=== PATIENT | female | born 1990 | race Caucasian/White ===

== ENCOUNTER 2021-09-30 00:42 | Emergency (ER) | payer BC, SELFPAY ==
[2021-09-30 00:42] VITALS: BP 126/75; PULSE 87; RESP 20; TEMP 36.2; O2SAT 98; BMI 29.3
[2021-09-30 00:46] VITALS: BP 118/78; PULSE 87; RESP 16; O2SAT 97
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
--- NOTE | 2021-09-30 01:31 | ED.NURSE ---
Urine sample collected and sent to lab.
[2021-09-30 01:36] LABS: Appearance Urine Cloudy (Clear); Bilirubin Urine Negative (Negative); Blood Urine Negative (Negative); Color Urine Yellow (Yellow); Glucose Urine Negative (Negative); Ketones Urine Negative (Negative); Leukocyte Esterase Urine Trace (Negative); Nitrite Urine Negative (Negative); Protein Urine Negative (Negative); Specific Gravity Urine <= 1.005 (1.000-1.030); Urobilinogen Urine 0.2 (0.2-1.0)
[2021-09-30 01:40] LABS: Ur HCG Qualitative* Negative (Negative)
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
[2021-09-30 01:58] LABS: RBC Urine 0-2 (0-2); Squamous Epithelial Cell Urine Few (None-Few)
--- NOTE | 2021-09-30 01:59 | ED.NURSE ---
Patient to CT.
[2021-09-30 03:24] VITALS: BP 118/72; PULSE 71; RESP 18; O2SAT 97
--- NOTE | 2021-09-30 03:46 | ED.NURSE ---
Discharge instructions and medical clearance note was reviewed with patient and signed, when [facility] ([facility] refused to accept the patient until they were able to review the patient's ED visit summary, labs and physician notes per a conversation between [facility] and the [employer]. [facility] is contacted by this RN and it is explained that the patient is discharged from the ER and leaving into police custody, not a transfer from the hospital to their facility. Acceptance into [facility] is between the police department and [facility], not the hospital. This request is highly irregular and not standard practice. This request is reviewed with the physician, SARAH, Morphologist, and the patient. The patient is returned to the ER exam room per the request of [facility] to wait with the SARAH while in custody. Requested information is faxed to [facility].
--- NOTE | 2021-09-30 04:12 | ED.NURSE ---
Patient left department with [employer].
== END 2021-09-30 04:13 ==
PROVIDERS: Emergency Provider Family Medicine
DX: S16.1XXA Strain of muscle, fascia and tendon at neck level, initial encounter (principal); V43.52XA Car driver injured in collision with other type car in traffic accident, initial encounter
CPT/HCPCS: 72125; 81003; 81015; 81025; 99284; 99285

== ENCOUNTER 2022-05-07 08:53 | Emergency (ER) | payer BC, SELFPAY ==
[2022-05-07] VITALS (32 sets, daily range): BP systolic 118–142; BP diastolic 85–105; PULSE 73–128; RESP 16–20; TEMP 36.2; O2SAT 82–99; BMI 29.3
--- NOTE | 2022-05-07 10:20 | ED_ITS ---
HPI - General Adult General Chief complaint: Alcohol/Intoxication Stated complaint: Alcohol related/fever/vomiting Time Seen by Provider: 05/07/22 10:14 History of Present Illness HPI narrative: This 32-year-old female comes in stating that she is an alcoholic and is seeking help. She comes in with her boyfriend and states that she recently confided in him that she does have an alcohol problem. Her last drink was at 7:00 a.m. this morning but she states that she threw up soon after this. He does feel little bit shaky and does report some history of withdrawal symptoms. She has not had any seizures. She denies at using any other street drugs. Related Data Home Medications Medication Instructions Recorded Confirmed No Known Home Medications 09/30/21 09/30/21 Allergies Allergy/AdvReac Type Severity Reaction Status Date / Time acetaminophen AdvReac Mild Nausea Verified 09/30/21 01:10 Review of Systems Status of ROS: Reports: 10 or more systems reviewed and unremarkable except as noted in History and below Narrative: Constitutional: No fevers, no weight gain or loss. Eyes: No discharge. No vision changes. HENT: No congestion, no sore throat, no ear pain. Cardiovascular: No chest pain, no palpitations. Respiratory: No shortness of breath, no wheezes, no cough. Gastrointestinal: No abdominal pain, no diarrhea. Recent vomiting episode. Genitourinary: No dysuria, no hematuria. Musculoskeletal: Normal range of motion. Skin: No rashes, no pruritis. Neurological: No dizziness, weakness, sensory change, speech change. Mild tremor related to alcohol use. Endo/Heme/Allergies: No bruising or bleeding. No polydipsia. Pysch: Alcohol addiction. All other systems reviewed and are negative. [facility] Medical History Alcohol withdrawal Social History Smoking Status: Current every day smoker What tobacco products do you use: cigarettes How often do you have a drink containing alcohol: 4 or more times a week How many standard drinks containing alcohol do you have on a typical day: 5 or 6 How often do you have six or more drinks on one occasion: Daily or almost daily AUDIT-C Alcohol total score: 10 Non-prescribed substance use: marijuana (any form) service: No Exam Narrative: Exam Narrative: Constitutional: Well-developed, well-nourished, no acute distress. HEENT: Normocephalic, atraumatic. Neck: Normal range of motion. Nontender. Supple. Heart: Regular. No murmurs. Tachycardia, rate 103 beats per minute. Intact distal pulses. Lungs: Clear to auscultation. No chest discomfort. No wheezes, rhonchi, or rales. Abdomen: Normal bowel sounds. Nontender. No rebound tenderness. Genitalia: Deferred. Back: No midline tenderness. Normal range of motion. Extremities: Normal range of motion. No injury. Skin: Intact. No rash. Warm. No erythema or pallor. Neurologic: No altered sensation. No weakness. Alert and oriented. Psychiatric: No suicidality. No anxiety or depression. No insomnia. Nursing notes and vitals signs are reviewed. Const: Vital Signs, click to edit/add: Vital Signs - 24 hr 05/07/22 09:12 05/07/22 10:54 05/07/22 13:04 Temperature 97.1 F L Pulse Rate [Pulse Oximeter] 103 H 78 92 Respiratory Rate 20 18 Blood Pressure [Le ft Upper Arm] 142/105 H 123/89 Pulse Oximetry 98 97 93 Oxygen Delivery Me thod Room Air 05/07/22 14:13 Temperature Pulse Rate [Pulse Oximeter] 91 Respiratory Rate 16 Blood Pressure [Le ft Upper Arm] 118/85 Pulse Oximetry 95 Oxygen Delivery Me thod Course Vital Signs Vital signs: Initial Vital Signs Temperature 97.1 F L 05/07/22 09:12 Temperature Source Temporal Artery Scan 05/07/22 09:12 Pulse Rate 103 H 05/07/22 09:12 Respiratory Rate 05/07/22 09:12 Blood Pressure 142/105 H 05/07/22 09:12 Blood Pressure Mean 117 05/07/22 09:12 Pulse Oximetry 98 05/07/22 09:12 Oxygen Delivery Method 05/07/22 09:12 Vital Signs Temperature 97.1 F L 05/07/22 09:12 Pulse Rate 103 H 05/07/22 09:12 Respiratory Rate 20 05/07/22 09:12 Blood Pressure 142/105 H 05/07/22 09:12 Pulse Oximetry 98 05/07/22 09:12 Oxygen Delivery Method 05/07/22 09:12 Temperature 97.1 F L 05/07/22 09:12 Pulse Rate 91 05/07/22 14:13 Respiratory Rate 16 05/07/22 14:13 Blood Pressure 118/85 05/07/22 14:13 Pulse Oximetry 95 05/07/22 14:13 Oxygen Delivery Method 05/07/22 09:12 Medical Decision Making MDM Narrative Medical decision making narrative: This patient comes in with alcohol intoxication and dependence. She stated initially that she is interested in detox in getting treatment. An IV was established and she received a L of normal saline and 1 mg of Ativan intravenously. She did have some mild tremor when holding her hand. This helped her feel better. Arrangements are made over several hours time for [facility] to be [facility]. The patient now is changing her mind is saying that she cannot afford to lose her job and was not aware that detox was an inpatient strategy. I stated that she would likely experience some withdrawal symptoms that may perpetuate drinking alcohol and nevertheless recommended detox for her. She again declined this. She is okay to be discharged home then and has someone who can escort her. Lab Data Labs: Lab Results 05/07/22 05/07/22 05/07/22 Range/Units 10:40 10:40 12:16 WBC 5.57 (4.50-11.00) K/uL RBC 5.19 (4.00-5.20) m/uL Hgb 15.6 (12.0-16.0) gm/dL Hct 44.5 (33.0-51.0) % MCV 86 (80-100) fL MCH 30 (26-34) pg MCHC 35 (32-36) gm/dL RDW Coeff of [place] 16.0 H (11.5-15.5) % Plt Count 232 (140-440) K/uL Neut % (Auto) 61.0 (42.0-72.0) % Lymph % (Auto) 30.0 (20-44) % [place] % (Auto) 8.3 (0.0-11.0) % Eos % (Auto) 0.2 (0.0-7.0) % Baso % (Auto) 0.5 (0.0-3.0) % Neut # (Auto) 3.40 (1.7-7.0) K/uL Lymph # (Auto) 1.67 (0.90-2.90) K/uL [place] # (Auto) 0.50 (0.00-0.90) K/UL Eos # (Auto) 0.01 (0.00-0.50) K/uL Baso # (Auto) 0.03 (0.00-0.30) K/uL Sodium 141 (135-149) mmol/L Potassium 3.5 L (3.6-5.1) mmol/L Chloride 105 (96-114) mmol/L Carbon Dioxide 26 (20-32) mmol/L BUN 11 (5-24) mg/dL Creatinine 0.8 (0.5-1.5) mg/dL Estimated Creat Clear 80.59 Estimated GFR 101 ml/min Glucose 142 H (60-115) mg/dL Calcium 8.2 L (8.4-10.6) mg/dL HCG, Qual Negative (Negative) Urine Color Yellow (Yellow) Urine Appearance Cloudy A (Clear) Urine pH 6.0 (5.0-8.5) Ur Specific [place] 1.015 (1.000-1.030) Urine Protein Negative (Negative) Urine Glucose (UA) Negative (Negative) Urine Ketones Negative (Negative) Urine Blood Trace-intact A (Negative) Urine Nitrite Positive A (Negative) Urine Bilirubin Negative (Negative) Urine Urobilinogen 0.2 (0.2-1.0) Ur Leukocyte Esterase Trace A (Negative) Urine RBC 0-2 (0-2) Urine WBC 5-10 A (0-5) Ur Squamous Epith Cells Moderate A (None-Few) Urine Bacteria Many A (None) Urine Opiates Screen (Negative) Ur Oxycodone Screen (Negative) Urine Methadone Screen (Negative) Ur Propoxyphene Screen (Negative) Ur Barbiturates Screen (Negative) U Tricyclic Antidepress (Negative) Ur Phencyclidine Scrn (Negative) Ur Amphetamines Screen (Negative) U Methamphetamines Scrn (Negative) U Benzodiazepines Scrn (Negative) Urine Cocaine Screen (Negative) U Marijuana (THC) Screen (Negative) Ur Drug Screen Comment Ethyl Alcohol 0.27 H (0.01-0.03) % SARS-CoV-2 (PCR) (Negative) 05/07/22 05/07/22 Range/Units 12:16 14:16 WBC (4.50-11.00) K/uL RBC (4.00-5.20) m/uL Hgb (12.0-16.0) gm/dL Hct (33.0-51.0) % MCV (80-100) fL MCH (26-34) pg MCHC (32-36) gm/dL RDW Coeff of [place] (11.5-15.5) % Plt Count (140-440) K/uL Neut % (Auto) (42.0-72.0) % Lymph % (Auto) (20-44) % [place] % (Auto) (0.0-11.0) % Eos % (Auto) (0.0-7.0) % Baso % (Auto) (0.0-3.0) % Neut # (Auto) (1.7-7.0) K/uL Lymph # (Auto) (0.90-2.90) K/uL [place] # (Auto) (0.00-0.90) K/UL Eos # (Auto) (0.00-0.50) K/uL Baso # (Auto) (0.00-0.30) K/uL Sodium (135-149) mmol/L Potassium (3.6-5.1) mmol/L Chloride (96-114) mmol/L Carbon Dioxide (20-32) mmol/L BUN (5-24) mg/dL Creatinine (0.5-1.5) mg/dL Estimated Creat Clear Estimated GFR ml/min Glucose (60-115) mg/dL Calcium (8.4-10.6) mg/dL HCG, Qual (Negative) Urine Color (Yellow) Urine Appearance (Clear) Urine pH (5.0-8.5) Ur Specific [place] (1.000-1.030) Urine Protein (Negative) Urine Glucose (UA) (Negative) Urine Ketones (Negative) Urine Blood (Negative) Urine Nitrite (Negative) Urine Bilirubin (Negative) Urine Urobilinogen (0.2-1.0) Ur Leukocyte Esterase (Negative) Urine RBC (0-2) Urine WBC (0-5) Ur Squamous Epith Cells (None-Few) Urine Bacteria (None) Urine Opiates Screen Negative (Negative) Ur Oxycodone Screen Negative (Negative) Urine Methadone Screen Negative (Negative) Ur Propoxyphene Screen Negative (Negative) Ur Barbiturates Screen Negative (Negative) U Tricyclic Antidepress Negative (Negative) Ur Phencyclidine Scrn Negative (Negative) Ur Amphetamines Screen Negative (Negative) U Methamphetamines Scrn Negative (Negative) U Benzodiazepines Scrn Negative (Negative) Urine Cocaine Screen Negative (Negative) U Marijuana (THC) Screen POSITIVE A* (Negative) Ur Drug Screen Comment See Note Ethyl Alcohol (0.01-0.03) % SARS-CoV-2 (PCR) Negative SARS-CoV-2 (Negative) Discharge Plan Discharge Clinical Impression: Alcoholic intoxication Patient Disposition: Home w/ Parent or Adult Condition: Stable Additional Instructions: Follow-up with primary physician. Consult detox resources to help with symptoms of withdrawal. Return if worsening. Inpatient or outpatient treatment is recommended. Prescriptions: No Action No Known Home Medications Follow Up/Referrals: Provider,Not a Local [Primary Care Provider] - Stand Alone Forms: [employer] Info Instructions
[2022-05-07 10:51] LABS: Basophils Absolute Auto 0.03 K/uL (0.00-0.30); Basophils Percent Auto 0.5 % (0.0-3.0); Eosinophils Absolute Auto 0.01 K/uL (0.00-0.50); Eosinophils Percent Auto 0.2 % (0.0-7.0); Hematocrit 44.5 % (33.0-51.0); Hemoglobin* 15.6 gm/dL (12.0-16.0); Lymphocytes Absolute Auto 1.67 K/uL (0.90-2.90); Mean Corpuscular HGB Conc 35 gm/dL (32-36); Mean Corpuscular Hemoglobin 30 pg (26-34); Mean Corpuscular Volume 86 fL (80-100); Monocytes Percent Auto 8.3 % (0.0-11.0); Platelet Count* 232 K/uL (140-440); Red Blood Count 5.19 m/uL (4.00-5.20); White Blood Count* 5.57 K/uL (4.50-11.00)
[2022-05-07] MEDS: 0.9 % SODIUM CHLORIDE 1000 ml 1,000 ML IV (10:51)
[2022-05-07] MEDS: LORazepam 2 MG/ML inj 1 MG IV (10:51)
[2022-05-07 11:02] LABS: Slide Review Reflex No
[2022-05-07 11:07] LABS: Chloride* 105 mmol/L (96-114); Sodium* 141 mmol/L (135-149)
[2022-05-07 11:08] LABS: Potassium* 3.5 mmol/L (3.6-5.1)
[2022-05-07 11:10] LABS: Carbon Dioxide* 26 mmol/L (20-32); Creatinine* 0.8 mg/dL (0.5-1.5); Est. Creatinine Clearance* 80.59; Estimated Glomerular Filt Rate 101 ml/min
[2022-05-07 11:11] LABS: Blood Urea Nitrogen* 11 mg/dL (5-24); Calcium* 8.2 mg/dL (8.4-10.6); Ethanol* 0.27 % (0.01-0.03); Glucose* 142 mg/dL (60-115)
[2022-05-07 13:44] LABS: HCG Qualitative* Negative (Negative)
[2022-05-07 13:51] LABS: Amphetamine Screen Urine Negative (Negative); Appearance Urine Cloudy (Clear); Barbiturate Screen Urine Negative (Negative); Benzodiazepines Screen Urine Negative (Negative); Bilirubin Urine Negative (Negative); Blood Urine Trace-intact (Negative); Cocaine Screen Urine Negative (Negative); Color Urine Yellow (Yellow); Glucose Urine Negative (Negative); Ketones Urine Negative (Negative); Leukocyte Esterase Urine Trace (Negative); Methadone Screen Urine Negative (Negative); Methamphetamines Screen Urine Negative (Negative); Nitrite Urine Positive (Negative); Opiate Screen Urine Negative (Negative); Oxycodone Screen Urine Negative (Negative); Phencyclidine Screen Urine Negative (Negative); Protein Urine Negative (Negative); Specific Gravity Urine 1.015 (1.000-1.030); Tricyclic Antidepressant Urine Negative (Negative); Urobilinogen Urine 0.2 (0.2-1.0)
[2022-05-07 13:54] LABS: Cannabinoid Screen Urine POSITIVE (Negative)
[2022-05-07 14:06] LABS: Bacteria Urine Many; RBC Urine 0-2 (0-2); Squamous Epithelial Cell Urine Moderate (None-Few)
[2022-05-07 14:56] LABS: SARS PCR* Negative SARS-CoV-2 (Negative)
== END 2022-05-07 16:01 | disposition home or self-care (01) ==
PROVIDERS: Emergency Provider Emergency Medicine Emergency Medical Services
DX: F10.229 Alcohol dependence with intoxication, unspecified (principal)
CPT/HCPCS: 36415; 80048; 80306; 81001; 82077; 84703; 85025; 87086; 87186; 87635; 96374; 99283; 99284; J2060; J7030

== ENCOUNTER 2023-03-25 09:42 | Outpatient (CLI) | payer BC, SELFPAY | END 2023-03-25 09:43 | disposition home or self-care (01) | LOC: AMB 03-29 07:21 | PROVIDERS: Visit Provider Family Medicine | DX: R04.0 Epistaxis (principal) | CPT/HCPCS: A0425; A0427 ==

== ENCOUNTER 2023-03-25 10:12 | Emergency (ER) | payer BC, SELFPAY ==
[2023-03-25] VITALS (14 sets, daily range): BP systolic 108–159; BP diastolic 68–96; PULSE 72–95; RESP 16; TEMP 36.4–36.5; O2SAT 93–99
--- NOTE | 2023-03-25 11:11 | ED_ITS ---
HPI - General Adult General Chief complaint: Alcohol/Intoxication Stated complaint: Fall, ETOH Time Seen by Provider: 03/25/23 10:56 History of Present Illness HPI narrative: Pt brought in by EMS for ETOH and a fall. patient fell last night around 9 pm. Patient went to work this morning and her nose started bleeding. C/o nose and lip pain/swelling. Coworker called 911 because they thought she fell again. Breathalyzer from PD showed .39. States she drinks daily and is an alcoholic. States she has had increased stress in her life with some family members passing away. Pt was recently hospitalized at [facility] for severe pneumonia. 32-year-old woman presenting to the emergency department via EMS after she on the way work today began bleeding from her nose in the parking lot ?bleeding out?. Primary complaint is nose pain and worried that she has broken her nose. She did fall last night around 9:00 p.m.. Is an admitted alcoholic. PD breathalyzer was 0.39. She notes that her brother I believe last April and today would be his birthday. Later information is that he did from alcohol-related complications. She blames herself for the of other people in her life doing suicide of a friend when she moved here from [place]. Recently h ospitalized at [facility] for ?pneumonia and bronchitis. I am clear last night whether there was loss of consciousness. Apparently has some dental soreness but feels intact otherwise. Lower lip in particular is quite sore. No shortness of breath. No abdominal pain on then later endorses a little discomfort along the right upper abdomen she is accompanied here by her boyfriend Bran. She has been to treatment a couple of times. She does say she needs help. Worried at this point about potentially losing her job. She feels disrespected at work. Does not endorse any effort at self-harm. She does say she struggles with alcohol withdrawal. She does not describe anything that sounds like DTs however; including no history of withdrawal seizures. Related Data Home Medications Medication Instructions Recorded Confirmed ondansetron 4 mg disintegrating mg PO 03/25/23 tablet sertraline 100 mg tablet 100 mg PO DAILY 03/25/23 03/25/23 Allergies Allergy/AdvReac Type Severity Reaction Status Date / Time acetaminophen AdvReac Mild Nausea Verified 07/11/22 01:10 Review of Systems Status of ROS: Reports: 6 or more systems reviewed and unremarkable except as noted in History and below [facility] Medical History Alcohol withdrawal Social History Smoking Status: Current every day smoker What tobacco products do you use: cigarettes How often do you have a drink containing alcohol: 4 or more times a week How many standard drinks containing alcohol do you have on a typical day: 5 or 6 How often do you have six or more drinks on one occasion: Daily or almost daily AUDIT-C Alcohol total score: 10 Non-prescribed substance use: marijuana (any form) service: No Exam Narrative: Exam Narrative: Mildly agitated. At times prone to tears. She has mildly swollen bridge of the nose subtle bluing around it. There is no blood in the meatus at this time. Bridge would seem to be shifted a little bit to the left however internal exam is without septal hematoma and suggests some crowding of the right nare. Is quite tender to examination or palpation of the bridge of the nose and she limits exam here. Dentition looks to be intact. She is quite sore at the tooth 9. But appears to be intact without any blood at the gumline. The lower lip has a color. Blood in the right side. Dried blood over the surface of the lower lip which is slightly swollen. Abraded internally but I do not see any clear la ceration. Quite tender to palpation. Neck is supple appears to be nontender. Ear canals are clear fluid. Pupils are 3 mm and equal appropriately accommodating maybe a little slow. Some nystagmus present. Cranial nerves 2-12 otherwise intact. Lungs are clear. Heart is in an elevated rate but regular rhythm. Distant. Abdomen is soft mildly tender to palpation at the anterior left rib margin but not clearly reproducible. No HSM appreciated but he did allow for the best exam. No flank pain. No back pain to palpation or deformity. Moving all extremities out difficulty. They are without edema. Hands bilaterally are somewhat dry. There is little bit of dried blood on right hand more than the left. Light abrasion on the right hand not corresponding I think to the blood present. Well-perfused peripherally. Const: Vital Signs, click to edit/add: Vital Signs - 24 hr 03/25/23 10:30 03/25/23 10:36 03/25/23 11:20 Temperature 97.5 F L Pulse Rate Pulse Rate [Pulse Oximeter] 94 94 85 Respiratory Rate 16 16 16 Blood Pressure Blood Pressure [Le ft Upper Arm] 150/92 H 159/68 H 121/96 H Pulse Oximetry 94 94 96 Oxygen Delivery Me thod Room Air Room Air Room Air 03/25/23 12:40 03/25/23 13:00 03/25/23 13:11 Temperature 97.7 F Pulse Rate 87 Pulse Rate [Pulse Oximeter] 84 95 Respiratory Rate 16 16 Blood Pressure Blood Pressure [Le ft Upper Arm] 110/85 127/96 H Pulse Oximetry 98 93 98 Oxygen Delivery Me thod Room Air Room Air 03/25/23 13:15 03/25/23 13:21 03/25/23 13:30 Temperature Pulse Rate 83 73 72 Pulse Rate [Pulse Oximeter] Respiratory Rate Blood Pressure 119/78 Blood Pressure [Le ft Upper Arm] Pulse Oximetry 99 96 97 Oxygen Delivery Me thod 03/25/23 13:41 03/25/23 13:45 03/25/23 14:00 Temperature Pulse Rate 76 77 75 Pulse Rate [Pulse Oximeter] Respiratory Rate Blood Pressure 108/76 Blood Pressure [Le ft Upper Arm] Pulse Oximetry 96 96 96 Oxygen Delivery Me thod 03/25/23 14:02 03/25/23 14:15 Temperature Pulse Rate 84 89 Pulse Rate [Pulse Oximeter] Respiratory Rate 16 Blood Pressure 110/88 Blood Pressure [Le ft Upper Arm] Pulse Oximetry 98 97 Oxygen Delivery Me thod Documenting provider has reviewed patient's vital signs: yes Course Vital Signs Vital signs: Initial Vital Signs Pulse Rate 94 03/25/23 10:30 Pulse Rhythm Regular 03/25/23 10:30 Pulse Strength 3+ Normal 03/25/23 10:30 Respiratory Rate 16 03/25/23 10:30 Respiratory Effort Normal 03/25/23 10:30 Respiratory Depth Normal 03/25/23 10:30 Respiratory Pattern Normal 03/25/23 10:30 Blood Pressure 150/92 H 03/25/23 10:30 Blood Pressure Mean 111 H 03/25/23 10:30 Blood Pressure Position Sitting 03/25/23 10:30 Pulse Oximetry 94 03/25/23 10:30 Oxygen Delivery Method Room Air 03/25/23 10:30 Vital Signs Pulse Rate 94 03/25/23 10:30 Respiratory Rate 16 03/25/23 10:30 Blood Pressure 150/92 H 03/25/23 10:30 Pulse Oximetry 94 03/25/23 10:30 Oxygen Delivery Method Room Air 03/25/23 10:30 Temperature 97.7 F 03/25/23 13:00 Pulse Rate 89 03/25/23 14:15 Respiratory Rate 16 03/25/23 14:02 Blood Pressure 110/88 03/25/23 14:02 Pulse Oximetry 97 03/25/23 14:15 Oxygen Delivery Method Room Air 03/25/23 13:00 Medications Administered Medications: Discontinued Medications Generic Name Dose Route Start Last Admin Trade Name Freq PRN Reason Stop Dose Admin Folic Acid 1 mg/ Multivitamins 1,011.2 mls @ 1,000 mls/hr 03/25/23 12:57 03/25/23 14:56 10 ml/ Thiamine HCl 100 mg/ IV 03/25/23 13:57 Infused Sodium Chloride .Q1H1M TAM Infusion Nicotine 1 patch 03/25/23 14:15 03/25/23 14:21 Nicotine 21 Mg Patch TRANSDERMA 1 patch Q24H TAM Administration Ondansetron HCl 4 mg 03/25/23 14:58 03/25/23 15:08 Ondansetron 2 Mg/Ml Inj IVP 03/25/23 14:59 4 mg ONCE ONE Administration Medical Decision Making MDM Narrative Medical decision making narrative: With alcohol intoxication will scan head for evidence of injury, intracranial bleed, spinal injury, dental fracture. May have a nasal fracture. Less likely injury elsewhere. But will scan head and neck along with facial bones. Anticipating potential detox placement would get an alcohol level. CT imaging of head and facial bones reviewed by me does not appear to show any acute abnormality. The facial CT though does show some small fluid in the left maxillary sinus. There is some rightward deviation of the septum but confirmed by Radiology read as below no fracture. Alcohol level returns at 0.45. Probably would benefit from some IV hydration and will check chemistries as well. Banana bag ordered. Transaminases slightly elevated. Also ordered for Zofran. Wanted a nicotine patch. Radiology over-read reviewed and reassuring for absence of any acute findings beyond what is mentioned above. Cleared somewhat over time in the emergency department. Ambulating without apparent difficulty. She is not interested in detox at this time not wanting to lose her job. We discussed that job loss might be imminent if she does not address her alcohol problem more urgently. She agrees. She is requesting a work note for today. See patient discharge plan Lab Data Lab results reviewed: Yes I reviewed the patient's lab results Labs: Lab Results 03/25/23 03/25/23 Range/Units 11:30 11:45 Hgb 13.4 (12.0-16.0) gm/dL INR 0.99 (0.91-1.10) Sodium 149 (135-149) mmol/L Potassium 4.4 (3.6-5.1) mmol/L Chloride 107 (96-114) mmol/L Carbon Dioxide 30 (20-32) mmol/L Anion Gap 12 (7-15) mEq/L BUN 12 (5-24) mg/dL Creatinine 0.6 (0.5-1.5) mg/dL Estimated GFR 123 ml/min Glucose 106 (60-115) mg/dL Calcium 8.7 (8.4-10.6) mg/dL Total Bilirubin 0.4 (0.1-1.5) mg/dL Direct Bilirubin 0.2 (0.0-0.5) mg/dL AST 91 H (12-35) U/L ALT 95 H (4-35) U/L Alkaline Phosphatase 124 (40-150) U/L Total Protein 7.9 (6.0-8.3) g/dL Albumin 4.6 (3.3-5.0) g/dL Urine Color Yellow (Yellow) Urine Appearance Cloudy A (Clear) Urine pH 6.0 (5.0-8.5) Ur Specific [place] <= 1.005 (1.000-1.030) Urine Protein Negative (Negative) Urine Glucose (UA) Negative (Negative) Urine Ketones Negative (Negative) Urine Blood Negative (Negative) Urine Nitrite Negative (Negative) Urine Bilirubin Negative (Negative) Urine Urobilinogen 0.2 (0.2-1.0) Ur Leukocyte Esterase Negative (Negative) Urine RBC 0-2 (0-2) Urine WBC 0-2 (0-5) Ur Squamous Epith Cells Many A (None-Few) Urine Bacteria Few A (None) Ethyl Alcohol 0.45 H* (0.01-0.03) % Discharge Plan Discharge Clinical Impression: Alcohol dependence, Alcohol intoxication, Closed head injury Patient Disposition: Home w/ Parent or Adult Condition: Improved Additional Instructions: Please check in with primary care as soon as possible. Might helpful in getting the through withdrawal symptoms. You know you need somebody to talk to. Need to talk with people who have gone through what you have as well as might be beneficial to meet with a therapist professionally. So as a start I would make an AA meeting yet today since that is free and available all over the place. Go with a friend. You can go as you are. If needed you can go to detox facilities; [place] [facility] [place] [facility] and then [facility], near [place]. There may be some other neuro facilities that I am unaware of. Might also begin looking into rehab possibilities. Prescriptions: No Action sertraline 100 mg tablet 100 mg PO DAILY ondansetron 4 mg tablet,disintegrating PO Follow Up/Referrals: Provider,Not a Local [Primary Care Provider] - Stand Alone Forms: [id number] Info Instructions
--- NOTE | 2023-03-25 11:29 | CRLHL7_ITS ---
For Patients: As a result of the Century Cures Act, medical imaging exams and procedure reports are released immediately into your electronic medical record. You may view this report before your referring provider. If you have questions, please contact your health care provider. INDICATION: Fall, suspected nasal bone fracture COMPARISON: Same-day head CT and cervical spine CT TECHNIQUE: CT of the facial bones without contrast. Multiplanar axial, coronal, and sagittal reformats were reconstructed. Contrast: None. FINDINGS: BONES: No fractures. No focal bone lesions. Normal temporomandibular joint alignment. ORBITS AND GLOBES: Right eye: Normal shape and position of globe. The lens is orthotopically located. No retrobulbar hematoma. The extraocular muscles have a normal course and caliber without signs of entrapment. Left eye: Normal shape and position of globe. The lens is orthotopically located. No retrobulbar hematoma. The extraocular muscles have a normal course and caliber without signs of entrapment. TEMPORAL BONES: Right ear: The external auditory canal is patent. There is normal pneumatization and aeration of the mastoid air cells and middle ear cavity. The ossicles appear normally positioned. The semicircular canals and cochlea are normally formed. No bony dehiscence. The vestibular aqueduct is of a normal size. The bony internal auditory canal is normal. Left ear: The external auditory canal is patent. Minimal fluid in a few mastoid air cells. The middle ear is well aerated. The ossicles appear normally positioned. The semicircular canals and cochlea are normally formed. No bony dehiscence. The vestibular aqueduct is of a normal size. The bony internal auditory canal is normal. PARANASAL SINUS: Mild mucosal thickening in the left maxillary sinus.. The nasal septum is not deviated. SOFT TISSUES: No soft tissue swelling. No soft tissue mass. No foreign body. Normal appearance of the parotid and salivary glands. DENTITION: No abscess. IMPRESSION: No facial/nasal bone fracture. Please note that all CT scans at this facility use dose modulation, iterative reconstruction, and/or weight-based dosing when appropriate to reduce radiation dose to as low as reasonably achievable. Dictated by Elisabeth Abrams MD @ 03/25/2023 1:08:29 PM (Electronically Signed)
--- NOTE | 2023-03-25 11:29 | CRLHL7_ITS ---
For Patients: As a result of the Century Cures Act, medical imaging exams and procedure reports are released immediately into your electronic medical record. You may view this report before your referring provider. If you have questions, please contact your health care provider. INDICATION: Closed head injury. COMPARISON: 09/30/2021, same-day head CT, same day facial bone CT. TECHNIQUE: CT of the cervical spine without contrast. Multiplanar axial, coronal, and sagittal reformats were reconstructed. FINDINGS: No fracture or dislocation. Mild disc space narrowing at C5-6 with small endplate osteophytes. No facet degenerative change. No severe neural foraminal stenosis. No central canal stenosis. No focal bony lesions. Limited exam of the intracranial contents, soft tissues of the neck, and the lung apices is normal. IMPRESSION: No acute findings in the cervical spine. Very mild disc space narrowing as above. Please note that all CT scans at this facility use dose modulation, iterative reconstruction, and/or weight-based dosing when appropriate to reduce radiation dose to as low as reasonably achievable. Dictated by Elisabeth Abrams MD @ 03/25/2023 1:05:43 PM (Electronically Signed)
--- NOTE | 2023-03-25 11:30 | CRLHL7_ITS ---
For Patients: As a result of the Century Cures Act, medical imaging exams and procedure reports are released immediately into your electronic medical record. You may view this report before your referring provider. If you have questions, please contact your health care provider. INDICATION: Alcoholism, fall. COMPARISON: None. TECHNIQUE: CT of the brain/head without the use of IV contrast. Multiplanar axial, coronal, and sagittal reformats were reconstructed. FINDINGS: Normal longoria-white matter differentiation throughout. Parenchymal volume loss greater than expected for age No intracranial hemorrhage. No mass, mass effect, or midline shift. The ventricles are normal in size and shape. No fracture or focal osseous lesion. Small amount of fluid in a few mastoid air cells. Small mucosal thickening in the left maxillary sinus Included orbit and globe are normal. IMPRESSION: 1. No intracranial hemorrhage or calvarial fracture. 2. Parenchymal volume loss is greater than expected for age. Please note that all CT scans at this facility use dose modulation, iterative reconstruction, and/or weight-based dosing when appropriate to reduce radiation dose to as low as reasonably achievable. Dictated by Elisabeth Abrams MD @ 03/25/2023 1:10:29 PM (Electronically Signed)
[2023-03-25 11:53] LABS: Hemoglobin* 13.4 gm/dL (12.0-16.0)
[2023-03-25 12:11] LABS: INR 0.99 (0.91-1.10); Prothrombin Time 13.7 Seconds
[2023-03-25 12:13] LABS: Albumin* 4.6 g/dL (3.3-5.0); Chloride* 107 mmol/L (96-114); Potassium* 4.4 mmol/L (3.6-5.1); Sodium* 149 mmol/L (135-149)
[2023-03-25 12:15] LABS: Anion Gap 12 mEq/L (7-15); Carbon Dioxide* 30 mmol/L (20-32); Creatinine* 0.6 mg/dL (0.5-1.5); Estimated Glomerular Filt Rate 123 ml/min
[2023-03-25 12:16] LABS: Alanine Aminotransferase* 95 U/L (4-35); Alkaline Phosphatase* 124 U/L (40-150); Aspartate Amino Transferase* 91 U/L (12-35); Bilirubin Direct* 0.2 mg/dL (0.0-0.5); Bilirubin Total* 0.4 mg/dL (0.1-1.5); Blood Urea Nitrogen* 12 mg/dL (5-24); Calcium* 8.7 mg/dL (8.4-10.6); Glucose* 106 mg/dL (60-115); Total Protein* 7.9 g/dL (6.0-8.3)
[2023-03-25 12:25] LABS: Ethanol* 0.45 % (0.01-0.03)
[2023-03-25 12:29] LABS: Appearance Urine Cloudy (Clear); Bilirubin Urine Negative (Negative); Blood Urine Negative (Negative); Color Urine Yellow (Yellow); Glucose Urine Negative (Negative); Ketones Urine Negative (Negative); Leukocyte Esterase Urine Negative (Negative); Nitrite Urine Negative (Negative); Protein Urine Negative (Negative); Specific Gravity Urine <= 1.005 (1.000-1.030); Urobilinogen Urine 0.2 (0.2-1.0)
[2023-03-25 12:37] LABS: Bacteria Urine Few; RBC Urine 0-2 (0-2); Squamous Epithelial Cell Urine Many (None-Few); WBC Urine 0-2 (0-5)
--- NOTE | 2023-03-25 12:57 | ED.NURSE ---
Took critical ETOH result from Lab of .45. Dr. Marshall aware.
[2023-03-25] MEDS: NICOTINE 21 MG PATCH 1 PATCH TRANSDERMA (14:21)
--- NOTE | 2023-03-25 14:21 | ED.NURSE ---
patient is hungry and wanted something to eat and drink. patient is requesting about nicotine patch.
[2023-03-25] MEDS: ONDANSETRON 2 MG/ML inj 4 MG IVP (15:08)
== END 2023-03-25 15:25 | disposition home or self-care (01) ==
PROVIDERS: Emergency Provider Family Medicine
DX: F10.229 Alcohol dependence with intoxication, unspecified (principal); W19.XXXA Unspecified fall, initial encounter
CPT/HCPCS: 36415; 70450; 70486; 72125; 80048; 80076; 81001; 82077; 85018; 85610; 87086; 96374; 99284; J2405; J3411; J7030; S4990